=== PATIENT | female | born 1975 | race African-American/Black ===

== ENCOUNTER 2022-06-21 15:51 | Emergency (ER) | payer MEDICAID ==
[~2022-06-21] VITALS: Ht 157.5 cm; Wt 100.2 kg
[2022-06-21] MEDS ORDERED: LASIX20 MG PO (16:14)
[2022-06-21] MEDS ORDERED: NAPROXEN250 MG PO (16:14)
== END 2022-06-21 17:30 | disposition home or self-care (01) ==
LOC: ER 15:55
DX: I89.0 Lymphedema, not elsewhere classified (principal); K21.9 Gastro-esophageal reflux disease without esophagitis; M51.36 Other intervertebral disc degeneration, lumbar region; F17.210 Nicotine dependence, cigarettes, uncomplicated
CPT/HCPCS: 99283